=== PATIENT | male | born 1965 | race Caucasian/White ===

== ENCOUNTER 2017-03-07 02:21 | Emergency (ER) | payer BC ==
--- NOTE | 2017-03-07 03:13 | ERNOTE ---
Lower Extremity HPI - General Time Seen by Provider: 03/07/17 02:48 Source: patient Exam Limitations: no limitations - Immun/Allergies/Home Medications Immunizations: IMMUNIZATION HX Immunizations Up to Date Yes History of Influenza Vaccine Yes Hx Pneumococcal Vaccination No Allergies/Adverse Reactions: Allergies Allergy/AdvReac Type Severity Reaction Status Date / Time No Known Allergies Allergy Verified 03/07/17 02:37 - History of Present Illness Narrative: left big toe pain for 48 hours. Pt also states that he stubbed his toe yesterday but his toe was hurting and red before he stubbed it Review of Systems - Review of Systems Constitutional: Present: no symptoms reported EYE: Present: no symptoms reported ENT: Present: no symptoms reported Respiratory: Present: no symptoms reported Cardiology: Present: no symptoms reported Gastrointestinal/Abdominal: Present: no symptoms reported Genitourinary: Present: no symptoms reported Musculoskeletal: Present: See HPI - Patient's Past Medical History Patient History - Medical: Other Patient History - Cardiac/Respiratory: No pertinent hx Patient History - Cancer: No Hx of Cancer Patient History - Surgical Procedures: Hernia Repair Patient History - Other: None - Social History Living Situations: spouse Abuse History: No History of abuse Psych History: No pertinent hx Smoking Status: Never smoker Have you smoked in the past 12 months: No Do you dip or chew tobacco: No Alcohol Use: none Drug Use: none - Immunizations Immunizations Up to Date: Yes Hx Pneumococcal Vaccination: No History of Influenza Vaccine: Yes Physical Exam - Physical Exam General Appearance: Present: wd/wn, alert, no apparent distress Respiratory: Present: no respiratory distress, normal breath sounds, no accessory muscle use, chest nontender, lungs clear Cardiovascular/Chest: Present: regular rate, rhythm, no murmur, normal peripheral pulses Extremity Exam: Present: other - patient's left first metatarsal area is red and shiny and swollen and tender to palpation. It appears to be typical gout. He has had a history of gout in the past, like ten years ago but none recently ED Progress - Results and Orders Patient's Lab Results:: I have reviewed the patient's lab results. - Vital Signs Patient's Vital Signs:: I have reviewed the patient's vital signs. Vital Signs: Vital Signs 03/07/17 02:32 Temperature 36.9 C Pulse Rate 66 Respiratory 16 Rate Blood Pressure 144/96 O2 Sat by Pulse 96 Oximetry - X-Ray X-Ray #1 X-Ray: foot - Progress/Reassessment Chief Complaint: Lower Extremity Pain/ Injury Plan - Plan Plan: This patient's uric acid is completely within normal limits, this patient has arthritis of his left great toe however at this time this examiner is not 100% sure that this is gout patient will be treated with anti-inflammatories. Departure Clinical Impression: Arthritis of big toe - Departure Disposition: Home self-care Condition: Good Instructions: Osteoarthritis Referrals: Yusuf Riggs DO [Primary Care Provider] - Prescriptions: Allopurinol [Zyloprim] 300 mg PO DAILY #30 tablet Colchicine [Colcrys] 0.6 mg PO DAILY #10 tablet Indomethacin [Indocin] 50 mg PO TID PRN #30 capsule PRN Reason: Pain
[2017-03-07] MEDS ORDERED: INDOMETHACIN 25 MG CAPSULE PO ONE ×2 (03:23→03:30)
[2017-03-07] MEDS ORDERED: IBUPROFEN 400 MG TABLET ONE (03:26)
[2017-03-07] MEDS ORDERED: IBUPROFEN 400 MG TABLET PO ONE (03:26)
[2017-03-07 03:35] VITALS: BP 138/89
== END 2017-03-07 03:34 | disposition home or self-care (01) ==
LOC: ER 02:21
DX: M19.072 Primary osteoarthritis, left ankle and foot (principal)